=== PATIENT | male | born 1990 | race African-American/Black ===

== ENCOUNTER 2017-06-18 23:32 | Emergency (ER) | payer OTHER ==
[~2017-06-18] VITALS: Ht 190.5 cm; Wt 99.8 kg
--- NOTE | 2017-06-18 23:55 | NUR ---
Pt is received alert, responsive as he came in c/o cough and congestions. His care continue as Md is at bedside.
--- NOTE | 2017-06-19 00:50 | NUR ---
Pt remain alert, responsive as CXR is done as he refused Robitussin 10mg po, Motrin 800mg po and Zithroma 500mg po given as ordered. His care continue as awaits test results.
[2017-06-19 02:06] VITALS: BP 130/80
--- NOTE | 2017-06-19 02:08 | NUR ---
Pt is been discharge to home [facility] and precriptions given as he remain stable.
== END 2017-06-19 02:10 | disposition home or self-care (01) ==
LOC: ER 23:37
DX: J40 Bronchitis, not specified as acute or chronic (principal)
CPT/HCPCS: 71010; A4663; Q0144